=== PATIENT | female | born 1990 | race Caucasian/White ===

== ENCOUNTER 2017-02-26 14:39 | Outpatient (CLI) | payer MEDICAID ==
[~2017-02-26] VITALS: Ht 152.4 cm; Wt 67.8 kg
[2017-02-26] MEDS ORDERED: PREN1TAB31 PO (14:56)
--- NOTE | 2017-02-26 16:43 | PN ---
Triage Information Date/Time Weeks of Gestation Patient is 1 para 0 at 23+6 weeks of gestation presents with vaginal spotting : 1 Para: 0 Diabetes: none Hypertention: none Objective Exam heart rate positive accelerations no decelerations [place] none Results/Medications Results 24 hrs Urine analysis indicating 3+ blood and 1+ leukocyte esterase Imaging Results AMENDMENT: 02/26/2017 5:49:46 PM Atilio Black M.D. GERMAN equals 10.3 cm. The cervix is closed with a length of 3.8 cm. RPTAT: QQ PROCEDURE: US OB. CLINICAL INDICATION: Vaginal spotting TECHNIQUE: Multiple sonographic images of the pelvis were obtained. The images were reviewed on a PACS workstation. COMPARISON: No prior studies are available for comparison. FINDINGS: There is a single viable intrauterine gestation. Cardiac activity is present with 138 beats per minute. There is a breech presentation. Measurements were made in order to determine age. The results are as follows: BPD = 5.7 cm HC = 21.8 cm AC = 19.1 cm FL = 4.2 cm. Estimated gestational age of approximately 23 weeks and 6 days. The estimated date of delivery is 06/19/2017. The EFW = 638 g grams. The placenta is posterior and grade 0. There is no evidence for an abruption or placenta previa. There are no adnexal masses. IMPRESSION: Single live intrauterine with an estimated gestational age of 23 weeks and 6 days. RPTAT: HPNM .Atilio Black MD, Date Time Electronically viewed and signed by .Atilio Black MD, on 02/26/2017 17:49 .L/ CC: CHEMO HOFFMAN MD Assessment/Plan 23.6 weeks of gestation with vaginal spotting We will send urinalysis and urine culture Complete OB ultrasound to be done Prescription for Macrobid was given Patient was counseled to follow-up with her [employer] in 2-3 days CHEMO HOFFMAN MD Feb 26, 2017 16:42
[2017-02-26 16:45] LABS: ADD UMIC YES; URINE BILIRUBIN (Dip) NEGATIVE (NEGATIVE); URINE BLOOD (Dip) 3+ (NEGATIVE); URINE COLOR LT. YELLOW (YELLOW); URINE GLUCOSE (Dip) NEGATIVE (NEGATIVE); URINE KETONES (Dip) NEGATIVE (NEGATIVE); URINE LEUKOCYTE ESTERASE (Dip) 1+ (NEGATIVE); URINE NITRITE (Dip) NEGATIVE (NEGATIVE); URINE TOTAL PROTEIN (Dip) NEGATIVE (NEGATIVE); URINE UROBILINOGEN (Dip) 0.2 E.U./dL (0.1-1.0)
[2017-02-26 16:55] LABS: SQUAMOUS EPITHELIAL CELL,UR MANY
[2017-02-26 16:56] LABS: BACTERIA,URINE FEW
--- NOTE | 2017-02-26 16:59 | RADRPT ---
AMENDMENT: 02/26/2017 5:49:46 PM Atilio Black M.D. GERMAN equals 10.3 cm. The cervix is closed with a length of 3.8 cm. RPTAT: QQ PROCEDURE: US OB. CLINICAL INDICATION: Vaginal spotting TECHNIQUE: Multiple sonographic images of the pelvis were obtained. The images were reviewed on a PACS workstation. COMPARISON: No prior studies are available for comparison. FINDINGS: There is a single viable intrauterine gestation. Cardiac activity is present with 138 beats per min [place]. There is a breech presentation. Measurements were made in order to determine age. The results are as follows: BPD =5.7 cm HC =21.8 cm AC =19.1 cm FL =4.2 cm. Estimated gestational age of approximately 23 weeks and 6 days. The estimated date of delivery is 06/19/2017. The EFW = 638 g grams. The placenta is posterior and grade 0. There is no evidence for an abruption or placenta previa. There are no adnexal masses. IMPRESSION: Single live intrauterine with an estimated gestational age of 23 weeks and 6 days. RPTAT: HPNM .Atilio Black MD, MD Date Time Electronically viewed and signed by .Atilio Black MD, on 02/26/2017 17:49 .L/
--- NOTE | 2017-02-26 18:33 | TRIAGE ---
OB Triage Datetime Report Generated by CPN: 02/26/2017 18:33 Datetime: 02/26/2017 16:42 Stage of : OB Triage Assessment Type: Triage Maternal Assessment Level of Consciousness: Fully Conscious DTR's/Clonus: DTRs 2+; No Clonus Headache: Denies Blurred Vision: No Respiratory Effort: Unlabored; Regular Rhythm; Equal Expansion Breath Sounds, Left: Clear and Equal Breath Sounds, Right: Clear and Equal Nausea/Vomiting: Denies RUQ Epigastric Pain: Denies Lower Extremities Edema: None Degree: None Upper Extremities Edema: None Degree: None Facial Edema: None Temperature Route: Axillary Fall Risk Assessment History of Falling: (0) No Secondary Diagnosis: (0) No Ambulatory Aid: (0) Bedrest/Nurse Assist IV Therapy: (0) No Gait: (0) Normal/Bedrest/Immobile Mental Status: (0) Oriented to Own Ability Fall Score: 0 Fall Risk Score Definition: No Risk: No action required Datetime: 02/26/2017 16:09 Monitor Mode: External Heart Rate FHR Baseline Rate: 145 Monitor Mode: External US FHR Baseline Changes: No Baseline Change Variability: Moderate 6-25 bpm Accelerations: 15X15 Decelerations: None Category: Category I Pain Assessment Pain Presence: None/Denies Datetime: 02/26/2017 16:08 Labor Evaluation Frequency: 0 Monitor Mode: External Heart Rate FHR Baseline Rate: 140 Monitor Mode: External US FHR Baseline Changes: No Baseline Change Variability: Moderate 6-25 bpm Accelerations: 15X15 Decelerations: None Category: Category I Pain Assessment Pain Presence: None/Denies Datetime: 02/26/2017 15:09 EGA: 23.6 Datetime: 02/26/2017 14:40 Stage of : OB Triage Assessment Type: Triage Maternal Assessment Level of Consciousness: Fully Conscious DTR's/Clonus: DTRs 2+; No Clonus Headache: Denies Blurred Vision: No Respiratory Effort: Unlabored; Regular Rhythm; Equal Expansion Breath Sounds, Left: Clear and Equal Breath Sounds, Right: Clear and Equal Nausea/Vomiting: Denies RUQ Epigastric Pain: Denies Lower Extremities Edema: None Degree: None Upper Extremities Edema: None Degree: None Facial Edema: None Temperature Route: Axillary Fall Risk Assessment History of Falling: (0) No Secondary Diagnosis: (0) No Ambulatory Aid: (0) Bedrest/Nurse Assist IV Therapy: (0) No Gait: (0) Normal/Bedrest/Immobile Mental Status: (0) Oriented to Own Ability Fall Score: 0 Fall Risk Score Definition: No Risk: No action required Datetime: 02/26/2017 14:28 Time of Arrival: 02/26/2017 14:28 Arrived By: Ambulatory Arrived From: Home Chief Complaint: SPOTTING Movement: Present Contractions: Denies/Absent Rupture of Membranes: Denies Vaginal Bleeding: Scant Vaginal Discharge: Denies Recent Sexual Intercouse: Denies Abdominal Trauma: Not Applicable Patient Complaints: None Time Provider Notified: 02/26/2017 15:30 Provider Notified: ISABELLA Initial Plan: OB U/S AND PLACENTA LOCATION AND UA AND URINE CULTURE
== END 2017-02-26 18:21 | disposition home or self-care (01) ==
LOC: L-D 14:39 → EDBD 14:39 → OBT 14:39
PROVIDERS: ATTEND Obstetrics & Gynecology
DX: O26.852 Spotting complicating pregnancy, second trimester (principal); Z3A.23 23 weeks gestation of pregnancy
CPT/HCPCS: 76815; 76817; 81001; 87086; Z7500; G0463

== ENCOUNTER 2017-06-17 09:20 | Inpatient (IN) | payer MEDICAID ==
[~2017-06-17] VITALS: Ht 149.9 cm; Wt 72.7 kg
[~2017-06-17 09:20] MED LIST: PREN1TAB31 PO
--- NOTE | 2017-06-17 09:47 | RADRPT ---
PROCEDURE: OB ultrasound for biophysical profile CLINICAL INDICATION: Vaginal spotting. TECHNIQUE: Multiple sonographic images of the pelvis were obtained. Transabdominal view of the gr avid uterus are available for review. The images were reviewed on a PACS workstation. COMPARISON: 02/26/2017. FINDINGS: breathing movement = 2/2 tone = 2/2 motion = 2/2 Quantitative amniotic fluid volume = 2/2 GERMAN = 8.1 cm Single live intrauterine with cardiac activity at 130 beats per minute. There is a left lateral placenta without previa or abruption. IMPRESSION: 1. Single living intrauterine gestation in cephalic position. 2. Biophysical profile = 8/8. 3. GERMAN = 8.1 cm. RPTAT: [facility] Physician Estephanie Date Time Electronically viewed and signed by Physician Estephanie on 06/17/2017 09:47 /
[2017-06-17] MEDS ORDERED: LACTATED RINGER'S 1,000 ML IV SCH (10:18)
[2017-06-17] MEDS ORDERED: LACTATED RINGER'S 1,000 ML IV PRN (10:20)
[2017-06-17 10:21] VITALS: BP 118/77; PULSE 77; RESP 18
--- NOTE | 2017-06-17 10:22 | TRIAGE ---
OB Triage Datetime Report Generated by CPN: 06/17/2017 10:22 Datetime: 06/17/2017 10:17 Maternal Assessment Level of Consciousness: Fully Conscious DTR's/Clonus: DTRs 2+; No Clonus Headache: Denies Blurred Vision: No Respiratory Effort: Unlabored; Regular Rhythm; Equal Expansion Breath Sounds, Left: Clear and Equal Breath Sounds, Right: Clear and Equal Nausea/Vomiting: Denies RUQ Epigastric Pain: Denies Facial Edema: None Fall Risk Assessment History of Falling: (0) No Secondary Diagnosis: (0) No Ambulatory Aid: (0) Bedrest/Nurse Assist IV Therapy: (0) No Gait: (0) Normal/Bedrest/Immobile Mental Status: (0) Oriented to Own Ability Datetime: 06/17/2017 10:14 Time of Arrival: 06/17/2017 09:05 Arrived By: Ambulatory Arrived From: Home Chief Complaint: SPOTTING/ LEAKING Movement: Present Contractions: Denies/Absent Rupture of Membranes: Unsure Vaginal Bleeding: Small Vaginal Discharge: Denies Recent Sexual Intercouse: Denies Abdominal Trauma: Not Applicable Patient Complaints: Cramping Time Provider Notified: 06/17/2017 10:12 Provider Notified: DR. MASON Initial Plan: SVE Datetime: 06/17/2017 10:04 Pain Assessment Pain Scale: 3 Pain Presence: Intermittent Pain Type: Contraction Pain Location: Abdomen; Back Pain Goal: 2 Pain Relief Measures: Comfort Measures Vaginal Exam Dilatation (cms): 3.0 Effacement (%): 60 Station: -2 Exam By: OGBODU Membrane Status: Intact Datetime: 06/17/2017 10:00 Stage of : OB Triage Assessment Type: Triage Maternal Assessment Level of Consciousness: Fully Conscious DTR's/Clonus: DTRs 2+; No Clonus Headache: Denies Blurred Vision: No Respiratory Effort: Unlabored; Regular Rhythm; Equal Expansion Breath Sounds, Left: Clear and Equal Breath Sounds, Right: Clear and Equal Nausea/Vomiting: Denies RUQ Epigastric Pain: Denies Lower Extremities Edema: None Degree: None Upper Extremities Edema: None Degree: None Facial Edema: None Temperature Route: Axillary Fall Risk Assessment History of Falling: (0) No Secondary Diagnosis: (0) No Ambulatory Aid: (0) Bedrest/Nurse Assist IV Therapy: (0) No Gait: (0) Normal/Bedrest/Immobile Mental Status: (0) Oriented to Own Ability Datetime: 02/26/2017 14:40 Fall Score: 0 Fall Risk Score Definition: No Risk: No action required
[2017-06-17 10:23] LABS: ADD UMIC YES; UR ASCORBIC ACID NEGATIVE (NEGATIVE); UR BACTERIA FEW /HPF (NONE SEEN); UR BILIRUBIN (Dip) NEGATIVE (NEGATIVE); UR BLOOD (Dip) 3+ mg/dL (NEGATIVE); UR CLARITY SLIGHTLY CLOUDY (CLEAR); UR COLOR YELLOW (YELLOW); UR GLUCOSE (Dip) NEGATIVE (NEGATIVE); UR KETONES (Dip) NEGATIVE (NEGATIVE); UR LEUKOCYTE ESTERASE (Dip) 2+ Leu/ul (NEGATIVE); UR NITRITE (Dip) NEGATIVE (NEGATIVE); UR RBC 14 /HPF (0-5); UR SPECIFIC GRAVITY (Dip) 1.006 (1.003-1.030); UR SQUAMOUS EPITHELIAL CELL FEW /HPF (FEW); UR TOTAL PROTEIN (Dip) NEGATIVE (NEGATIVE); UR UROBILINOGEN (Dip) NEGATIVE (NEGATIVE)
[2017-06-17] MEDS ORDERED: MISOPROSTOL 200 MCG TAB PR PRN ×2 (10:30→22:30)
[2017-06-17] MEDS ORDERED: BUTORPHANOL 2 MG INJ IV PRN ×2 (10:30)
[2017-06-17] MEDS ORDERED: OXYTOCIN 30 UNITS/LR 500 ML IV PRN ×2 (10:30→22:30)
[2017-06-17] MEDS ORDERED: HYDROCODONE/APAP (5/325) TAB PO PRN ×2 (10:30→22:30)
[2017-06-17] MEDS ORDERED: METHYLERGONOVINE 0.2 MG INJ IM PRN ×2 (10:30→22:30)
[2017-06-17] MEDS ORDERED: CARBOPROST 250 MCG INJ IM PRN ×2 (10:30→22:30)
[2017-06-17] MEDS ORDERED: IBUPROFEN 600 MG TAB PO PRN (10:30)
[2017-06-17] MEDS ORDERED: OXYTOCIN 30 UNITS/LR 500 ML IV SCH ×3 (10:30)
[2017-06-17] MEDS ORDERED: AMPICILLIN 2 GM/NS (PMX) 100 ML IV ONE (10:30)
[2017-06-17] MEDS ORDERED: LIDOCAINE 1% (MPF) 30 ML INJ INJ PRN (10:30)
--- NOTE | 2017-06-17 10:37 | TRIAGE ---
OB Triage Datetime Report Generated by CPN: 06/17/2017 10:36 Datetime: 06/17/2017 10:17 Fall Score: 0 Fall Risk Score Definition: No Risk: No action required Datetime: 06/17/2017 10:14 EGA: 39.5 Datetime: 06/17/2017 10:00 Fall Score: 0 Fall Risk Score Definition: No Risk: No action required Datetime: 02/26/2017 16:42 Fall Score: 0 Fall Risk Score Definition: No Risk: No action required Datetime: 02/26/2017 15:09 EGA: 23.6
[2017-06-17 11:48] VITALS: Ht 149.9 cm; Wt 72.7 kg
[2017-06-17 12:07] LABS: BASOPHILS % 0.2 % (0.0-2.0); EOSINOPHILS % 0.2 % (0.0-7.0); HEMATOCRIT 41.7 % (37.0-47.0); HEMOGLOBIN 14.8 g/dl (12.0-16.0); LYMPHOCYTES # 2.4 10^3/ul (0.8-2.9); LYMPHOCYTES % 26.4 % (15.0-51.0); MEAN CORPUSCULAR HGB CONC 35.5 g/dl (32.0-37.0); MEAN CORPUSCULAR VOLUME 93.1 fl (82.0-101.0); MEAN PLATELET VOLUME 11.2 fl (7.4-10.4); MONOCYTE # 0.7 10^3/ul (0.3-0.9); MONOCYTES % 7.5 % (0.0-11.0); NEUTROPHIL # 5.9 10^3/ul (1.6-7.5); NEUTROPHILS % 65.4 % (39.0-77.0); PLATELET COUNT 213 10^3/UL (140-415); RED BLOOD COUNT 4.48 10^6/ul (4.20-5.40); RED CELL DISTRIBUTION WIDTH 12.5 % (11.5-14.5)
[2017-06-17 12:31] LABS: INR 0.92; PROTIME 12.4 Sec (12.2-14.2)
[2017-06-17 12:32] LABS: PARTIAL THROMBOPLASTIN TIME 26.3 Sec (25.0-35.0)
[2017-06-17 12:33] LABS: ALANINE AMINOTRANSFERASE 27 IU/L (13-69); ALBUMIN 3.8 g/dl (3.3-4.9); ALBUMIN/GLOBULIN RATIO 1.05; ALKALINE PHOSPHATASE 193 IU/L (42-121); ANION GAP 12 (8-16); ASPARTATE AMINO TRANSFERASE 22 IU/L (15-46); BILIRUBIN,INDIRECT 0.1 mg/dl (0-1.1); BILIRUBIN,TOTAL 0.1 mg/dl (0.2-1.3); BLOOD UREA NITROGEN 6 mg/dl (7-20); CALCIUM 9.3 mg/dl (8.4-10.2); CARBON DIOXIDE 21 mmol/L (21-31); CHLORIDE 108 mmol/L (97-110); CREATININE 0.53 mg/dl (0.44-1.00); GLUCOSE 80 mg/dl (70-220); POTASSIUM 4.1 mmol/L (3.5-5.1); SODIUM 137 mmol/L (135-144); TOTAL PROTEIN 7.4 g/dl (6.1-8.1)
[2017-06-17] MEDS ORDERED: AMPICILLIN 1 GM/NS (PMX) 50 ML IV SCH (14:30)
--- NOTE | 2017-06-17 17:06 | HP ---
Date/Time of Note Date/Time of Note DATE: 06/17/17 TIME: 17:05 OB - History Hx of Present Free Text/Dictation at term in active labor Care: Good Care Ultrasounds: Normal mid trimester US Obstetrical Complications: None Medical Complications: None Past Family/Social History * Past Medical, Surgical, Family and Obstetric Histories reviewed from chart. OB Admission Exam Vital Signs Vital Signs Vital Signs Date Time Temp Pulse Resp B/P Pulse Ox O2 Delivery O2 Flow Rate FiO2 06/17/17 10:21 98.2 77 18 118/77 99 Room Air Physical Exam HEENT: WNL Heart: Rhythm Normal Lungs: Clear, Equal Abdomen: WNL Extremities: Normal Reflexes: Normal Cervical Dilatation: 10cm Effacement: 100% Station: +3 Membranes: Ruptured Amniotic Fluid: Clear Heart Rate: 130's Accelerations: Accelerations Present Decelerations: No Decelerations Contractions on Admission: 6-10 Minutes Apart Last 72 hours Lab Results CBC & BMP 06/17/17 11:20 Liver Function Test 06/17/17 11:20 Alanine Aminotransferase (ALT/SGPT) 27 Albumin 3.8 Alkaline Phosphatase 193 H Aspartate Amino Transf (AST/SGOT) 22 Direct Bilirubin 0.00 Total Protein 7.4 OB Assessment/Plan Reason for admission: active labor Plan: Expectant Management JASPER MASON MD Jun 17, 2017 17:06
--- NOTE | 2017-06-17 17:07 | LDN ---
Date/Time of Note Date/Time of Note DATE: 06/17/17 TIME: 17:06 Delivery Summary w/o complications Placenta Delivered: Spontaneously Meconium: none Perineal laceration: 1 Anesthesia type: Local Estimated blood loss: 300 Sponge & Needle done & correct: Yes All needle counts correct: Yes Any foreign bodies felt in the: No Problems: JASPER MASON MD Jun 17, 2017 17:07
[2017-06-17] MEDS: LACTATED RINGER'S 1,000 ML IV* SCH (22:26)
[2017-06-17] MEDS: OXYTOCIN 30 UNITS/LR 500 ML IV SCH (22:26)
[2017-06-17] MEDS ORDERED: WITCH HAZEL/GLYCERIN PAD PR PRN (22:30)
[2017-06-17] MEDS ORDERED: LANOLIN 7 GM TUBE TOP PRN (22:30)
[2017-06-17] MEDS ORDERED: ZOLPIDEM 5 MG TAB PO PRN (22:30)
[2017-06-17] MEDS ORDERED: DIPHENHYDRAMINE 25 MG CAP PO PRN (22:30)
[2017-06-17] MEDS ORDERED: BENZOCAINE 20% 56 ML SPRAY TOP PRN (22:30)
[2017-06-17] MEDS ORDERED: ACETAMINOPHEN 325 MG TAB PO PRN (22:30)
[2017-06-17] MEDS ORDERED: MAGNESIUM HYDROXIDE 30ML CUP PO PRN (22:30)
[2017-06-17 23:15] VITALS: BP 111/63; PULSE 83
[2017-06-18] MEDS: IBUPROFEN 800 MG TAB PO SCH ×5 (00:21→23:38)
[2017-06-18] MEDS: OXYTOCIN 30 UNITS/LR 500 ML IV SCH (02:26)
[2017-06-18 03:44] VITALS: BP 97/56; PULSE 89; RESP 19
[2017-06-18] MEDS: LACTATED RINGER'S 1,000 ML IV* SCH ×2 (06:26→14:26)
[2017-06-18 08:00] VITALS: BP 121/57; PULSE 76; RESP 18
[2017-06-18 08:18] LABS: BASOPHILS % 0.2 % (0.0-2.0); EOSINOPHILS % 0.2 % (0.0-7.0); HEMATOCRIT 36.2 % (37.0-47.0); HEMOGLOBIN 12.5 g/dl (12.0-16.0); LYMPHOCYTES # 2.4 10^3/ul (0.8-2.9); LYMPHOCYTES % 18.3 % (15.0-51.0); MEAN CORPUSCULAR HEMOGLOBIN 32.7 pg (29.0-33.0); MEAN CORPUSCULAR HGB CONC 34.5 g/dl (32.0-37.0); MEAN CORPUSCULAR VOLUME 94.8 fl (82.0-101.0); MEAN PLATELET VOLUME 10.6 fl (7.4-10.4); MONOCYTES % 7.4 % (0.0-11.0); NEUTROPHIL # 9.7 10^3/ul (1.6-7.5); NEUTROPHILS % 73.4 % (39.0-77.0); PLATELET COUNT 195 10^3/UL (140-415); RED BLOOD COUNT 3.82 10^6/ul (4.20-5.40); RED CELL DISTRIBUTION WIDTH 12.8 % (11.5-14.5); WHITE BLOOD COUNT 13.2 10^3/ul (4.8-10.8)
[2017-06-18] MEDS: SENNA/DOCUSATE NA (8.6MG/50MG) TAB PO PRN ×2 (09:01→23:38)
[2017-06-18 12:00] VITALS: BP 114/65; PULSE 93
[2017-06-18 16:10] VITALS: BP 117/72; PULSE 71
[2017-06-18 20:00] VITALS: BP 121/66; PULSE 87; RESP 18
[2017-06-19 04:10] VITALS: BP 111/62; PULSE 76; RESP 20
[2017-06-19] MEDS: IBUPROFEN 800 MG TAB PO SCH ×2 (06:00→12:00)
[2017-06-19 08:30] VITALS: BP 114/74; PULSE 79; RESP 18
[2017-06-19] MEDS ORDERED: MEASLES,MUMPS,RUBELLA VACCINE INJ SC* ONE (09:00)
[2017-06-19] MEDS ORDERED: DIPHTH/TET/ACEL PERTUSS (ADULT) 0.5 ML VIAL IM* ONE (09:00)
[2017-06-19] MEDS ORDERED: VARICELLA VACCINE LIVE/PF 1,350 UNIT/0.5 ML ML SC* ONE (09:00)
--- NOTE | 2017-06-19 09:13 | PD.PPDC ---
FENDER MECH[employer]IC Discharge Instruction Condition Patient Condition: Stable Diet Diet: Resume Regular Diet Activity/Restrictions Activity: Normal Activity May Shower Restrictions: No Exercising No Lifting No Driving No Sexual Activity Nothing in the Vagina No [place] No Tampons, douche Follow-up Follow-up with Physician: 6, Week/Weeks Return to clinic for CARE CONSULTANT Instructions: Fever greater than 101 Chills Worsening abdominal pain Excessive Vaginal Bleeding More than 2 pads per hour Unable to tolerate diet OB Instructions: Breast Tenderness Depression Blurried Vision Headache Surgical Instructions: Incisional Drainage Incisional Redness JASPER MASON MD Jun 19, 2017 09:13
--- NOTE | 2017-06-19 09:13 | DS ---
Date/Time of Note Date/Time of Note DATE: 06/19/17 TIME: 09:12 Discharge Summary Admission/Discharge Info Admit Date/Time Jun 17, 2017 at 10:12 Discharge Date/Time Discharge Diagnosis term Patient Condition: Stable Hospital Course unremarkable Home Meds Reported Medications Vits #90-Iron Fum-FA ( Formula) 1 Each Tablet, 1 TAB PO DAILY, TAB 02/26/17 Primary Care Provider Care Physician No Primary Time spent on discharge: < 30 minutes JASPER MASON MD Jun 19, 2017 09:13
== END 2017-06-19 18:00 | disposition home or self-care (01) | DRG 775 ==
LOC: OBT 09:20 → L-D 09:20 → OBT 10:14 → L-D 10:54 → PP1 06-18 17:59
PROVIDERS: ADMIT Obstetrics & Gynecology; ATTEND Obstetrics & Gynecology
PROC: 10E0XZZ Delivery of Products of Conception, External Approach (ICD-10-PCS; principal; 2017-06-17)
PROC: 0HQ9XZZ Repair Perineum Skin, External Approach (ICD-10-PCS; 2017-06-17)
DX: O70.0 First degree perineal laceration during delivery (principal); Z37.0 Single live birth; Z3A.00 Weeks of gestation of pregnancy not specified
CPT/HCPCS: 76818; 80053; 81001; 84112; 85025; 85610; 85730; 86592; 86900; 86901; 87340; 90715; 90716; G0463; J0595; J2590; J7120

== ENCOUNTER 2017-09-20 12:08 | Emergency (ER) | END 2017-09-20 12:39 | disposition home or self-care (01) ==